=== PATIENT | male | born 1990 | race Caucasian/White ===

== ENCOUNTER 2019-07-01 12:26 | Emergency (ER) | payer SELFPAY ==
[2019-07-01 12:43] VITALS: BP 120/80; PULSE 86; TEMP 98; BMI 25.4
[2019-07-01] MEDS ORDERED: levETIRAcetam 500 MG/5 ML INJECTION VIAL IVPB ONE ×2 (12:53→13:12)
[2019-07-01] MEDS ORDERED: ONDANSETRON 4 MG/2 ML VIAL ONE (12:55)
[2019-07-01] MEDS ORDERED: SODIUM CHLORIDE 1,000 ML IV STA (12:57)
[2019-07-01] MEDS ORDERED: ONDANSETRON 4 MG/2 ML VIAL IVPUSH ONE ×2 (12:57→13:01)
--- NOTE | 2019-07-01 13:03 | PDOC ---
History of Present Illness - General Chief Complaint: Seizure Stated Complaint: Seizure Time Seen by Provider: 07/01/19 12:34 - History of Present Illness Initial Comments: David Glynn is a 28 yo male with reported PMH of TBI and craniotomy in 2012, on Keppra for 500 mg BID until 2 years ago, last seizure 3 years ago, pres enting today with witnessed generalized tonic clonic seizure. Per girlfriend, he was shaking his arms and legs with his eyes closed for several minutes, though this was not timed. No urinary incontinence or tongue lacerations. EMS called and by the time they arrived the seizures had stopped. Pt has mild post ictal state per EMS, but is alert and oriented x3. Denies headache/neck pain. Denies chest pain/shortness of breath. Pt began vomiting for 1st time in the ED. Denies abdominal pain. Denies weakness. Denies recent illness/fever/chills. He smokes marijuana regularly (last time was yesterday night). Reports moderate ETOH use. Denies other drug use. Neuro: in [place], has not followed in a while Past History - Past Medical History Allergies/Adverse Reactions: Allergies Allergy/AdvReac Type Severity Reaction Status Date / Time No Known Allergies Allergy Verified 07/01/19 12:43 Home Medications: Ambulatory Orders levETIRAcetam [Keppra -] 500 mg PO BID 01/25/13 levETIRAcetam [Keppra] 500 mg PO BID #30 tablet 01/25/13 levETIRAcetam [Keppra -] 500 mg PO BID #14 tablet 07/01/19 Seizures: Yes (TBI) - Psycho Social/Smoking Cessation Hx Smoking Status: Yes Smoking History: Never smoked Have you smoked in the past 12 months: No Number of Cigarettes Smoked Daily: 10 Information on smoking cessation initiated: No Hx Alcohol Use: No Drug/Substance Use Hx: No Review of Systems - Review of Systems Comments:: GENERAL/CONSTITUTIONAL: No fever or chills. No weakness._ HEAD, EYES, EARS, NOSE AND THROAT: No change in vision. No change in hearing. No sore throat._ CARDIOVASCULAR: No chest pain or shortness of breath_ RESPIRATORY: Denies cough, hemoptysis_ GASTROINTESTINAL: Reports nausea and vomiting. No diarrhea or constipation._ GENITOURINARY: No dysuria, frequency, or change in urination._ MUSCULOSKELETAL: No joint or muscle swelling or pain. No neck or back pain._ SKIN: No rash_ NEUROLOGIC: No headache, vertigo, or change in strength/sensation. Reports seizure activity. ENDOCRINE: No increased thirst. No abnormal weight change_ HEMATOLOGIC/LYMPHATIC: No anemia, easy bleeding, or history of blood clots._ ALLERGIC/IMMUNOLOGIC: No hives or skin allergy._ *Physical Exam - Vital Signs Last Vital Signs Temp Pulse Resp BP Pulse Ox 98 F 86 18 120/80 100 07/01/19 12:37 07/01/19 12:37 07/01/19 12:37 07/01/19 12:37 07/01/19 12:37 - Physical Exam GENERAL: Awake, alert, and oriented to person/place/time, in no acute distress_ HEAD: No signs of trauma, normocephalic, atraumatic _ EYES: PERRLA, EOMI, sclera anicteric, conjunctiva clear_ ENT: Hearing grossly normal, nares patent, oropharynx clear without exudates. No uvular deviation. Moist mucosa_ NECK: Normal ROM, supple, no lymphadenopathy, JVD, or masses_ LUNGS: No distress, speaks in full sentences, clear to auscultation bilaterally _ HEART: Regular rate and rhythm, normal S1 and S2, no murmurs appreciated, peripheral pulses normal and equal bilaterally._ ABDOMEN: Soft, nontender, normoactive bowel sounds. No guarding, no rebound. No masses_ EXTREMITIES: Normal inspection, Normal range of motion, no edema. No clubbing or cyanosis_ NEUROLOGICAL: CN II-XII tested and intact. Sensation intact to sharp/dull differentiation in all extremities. Motor: Normal tone and bulk. No abnormal movements appreciated. No pronator drift. Strength tested and 5/5 in bilateral wrist flexion/extension, elbow flexi on/extension, shoulder abduction, straight leg raise, knee flexion/extension, ankle dorsiflexion/plantarflexion. Patient ambulates with a steady gait. Coordination: Finger to nose and heel to méndez testing intact bilaterally. SKIN: Warm, Dry, normal turgor, no rashes or lesions noted_ ED Treatment Course - LABORATORY CBC & Chemistry Diagram: 07/01/19 12:00 07/01/19 12:00 - RADIOLOGY Radiology Studies Ordered: Category Date Time Status HEAD CT WITHOUT CONTRAST [CT] Stat CT Scan 07/01/19 12:48 Ordered Medical Decision Making - Medical Decision Making 07/01/19 13:09 28M hx of TBI, craniotomy, previously on keppra 500 mg BID (stopped two years ago), last known seizure 3 years ago, presenting with generalized tonic clonic seizure. Vomiting at bedside on arrival to the ER. -cbc, cmp -ct head -fingerstick glucose -keppra, zofran 07/01/19 14:21 CT head shows no acute intra cranial pathology. Encephalomalacia in the left temporal lobe laterally at the site of surgery involving the perisylvian region. Labs reviewed. Laboratory Last Values WBC 14.7 K/mm3 (4.0-10.0) H 07/01/19 12:00 RBC 5.00 M/mm3 (4.00-5.60) 07/01/19 12:00 Hgb 16.1 GM/dL (11.7-16.9) 07/01/19 12:00 Hct 46.8 % (35.4-49) 07/01/19 12:00 MCV 93.6 fl (80-96) 07/01/19 12:00 MCH 32.1 pg (25.7-33.7) 07/01/19 12:00 MCHC 34.3 g/dl (32.0-35.9) 07/01/19 12:00 RDW 13.1 % (11.9-15.9) 07/01/19 12:00 Plt Count 238 K/MM3 (134-434) 07/01/19 12:00 MPV 8.4 fl (7.5-11.1) 07/01/19 12:00 Absolute Neuts (auto) 9.4 K/mm3 (1.5-8.0) H 07/01/19 12:00 Neutrophils % 64.0 % (42.8-82.8) 07/01/19 12:00 Lymphocytes % 24.4 % (8-40) D 07/01/19 12:00 Monocytes % 8.6 % (3.8-10.2) 07/01/19 12:00 Eosinophils % 2.6 % (0-4.5) D 07/01/19 12:00 Basophils % 0.4 % (0-2.0) 07/01/19 12:00 Nucleated RBC % 0 % (0-0) 07/01/19 12:00 Sodium 141 mmol/L (136-145) 07/01/19 12:00 Potassium 4.6 mmol/L (3.5-5.1) 07/01/19 12:00 Chloride 106 mmol/L (98-107) 07/01/19 12:00 Carbon Dioxide 26 mmol/L (21-32) 07/01/19 12:00 Anion Gap 9 MMOL/L (8-16) 07/01/19 12:00 BUN 19.1 mg/dL (7-18) H 07/01/19 12:00 Creatinine 1.0 mg/dL (0.55-1.3) 07/01/19 12:00 Est GFR (CKD-EPI)AfAm 119.86 07/01/19 12:00 Est GFR (CKD-EPI)NonAf 103.41 07/01/19 12:00 POC Glucometer 110 UNITS (80-120) 07/01/19 13:01 Random Glucose 107 mg/dL (74-106) H 07/01/19 12:00 Calcium 9.6 mg/dL (8.5-10.1) 07/01/19 12:00 Total Bilirubin 1.2 mg/dL (0.2-1) H 07/01/19 12:00 AST 30 U/L (15-37) 07/01/19 12:00 ALT 29 U/L (13-61) 07/01/19 12:00 Alkaline Phosphatase 79 U/L (45-117) 07/01/19 12:00 Total Protein 7.6 g/dl (6.4-8.2) 07/01/19 12:00 Albumin 4.5 g/dl (3.4-5.0) 07/01/19 12:00 07/01/19 14:[address] Campos. 07/01/19 14:57 2nd call placed to Dr. Campos. 07/01/19 15:[address] Campos's cell phone. 07/01/19 15:48 D/w Dr. Campos who will see the pt tomorrow at 1pm. Recommends that we re-start Keppra 500 mg BID. Plan to d/c home with neuro f/u. D/w the patient who verbalized understanding and agreement with plan. All questions answered. Return precautions ordered. D/w the patient driving restrictions. 07/01/19 17:18 UA reviewed. Urine Test Results Urine Color Yellow 07/01/19 15:38 Urine Appearance Clear 07/01/19 15:38 Urine pH 5.0 (5.0-8.0) 07/01/19 15:38 Ur Specific [place] 1.027 (1.010-1.035) 07/01/19 15:38 Urine Protein Negative (NEGATIVE) 07/01/19 15:38 Urine Glucose (UA) Negative (NEGATIVE) 07/01/19 15:38 Urine Ketones 3+ (NEGATIVE) H 07/01/19 15:38 Urine Blood Negative (NEGATIVE) 07/01/19 15:38 Urine Nitrite Negative (NEGATIVE) 07/01/19 15:38 Urine Bilirubin Negative (NEGATIVE) 07/01/19 15:38 Ur Leukocyte Esterase Negative (NEGATIVE) 07/01/19 15:38 Laboratory Last Values WBC 14.7 K/mm3 (4.0-10.0) H 07/01/19 12:00 RBC 5.00 M/mm3 (4.00-5.60) 07/01/19 12:00 Hgb 16.1 GM/dL (11.7-16.9) 07/01/19 12:00 Hct 46.8 % (35.4-49) 07/01/19 12:00 MCV 93.6 fl (80-96) 07/01/19 12:00 MCH 32.1 pg (25.7-33.7) 07/01/19 12:00 MCHC 34.3 g/dl (32.0-35.9) 07/01/19 12:00 RDW 13.1 % (11.9-15.9) 07/01/19 12:00 Plt Count 238 K/MM3 (134-434) 07/01/19 12:00 MPV 8.4 fl (7.5-11.1) 07/01/19 12:00 Absolute Neuts (auto) 9.4 K/mm3 (1.5-8.0) H 07/01/19 12:00 Neutrophils % 64.0 % (42.8-82.8) 07/01/19 12:00 Lymphocytes % 24.4 % (8-40) D 07/01/19 12:00 Monocytes % 8.6 % (3.8-10.2) 07/01/19 12:00 Eosinophils % 2.6 % (0-4.5) D 07/01/19 12:00 Basophils % 0.4 % (0-2.0) 07/01/19 12:00 Nucleated RBC % 0 % (0-0) 07/01/19 12:00 Sodium 141 mmol/L (136-145) 07/01/19 12:00 Potassium 4.6 mmol/L (3.5-5.1) 07/01/19 12:00 Chloride 106 mmol/L (98-107) 07/01/19 12:00 Carbon Dioxide 26 mmol/L (21-32) 07/01/19 12:00 Anion Gap 9 MMOL/L (8-16) 07/01/19 12:00 BUN 19.1 mg/dL (7-18) H 07/01/19 12:00 Creatinine 1.0 mg/dL (0.55-1.3) 07/01/19 12:00 Est GFR (CKD-EPI)AfAm 119.86 07/01/19 12:00 Est GFR (CKD-EPI)NonAf 103.41 07/01/19 12:00 POC Glucometer 110 UNITS (80-120) 07/01/19 13:01 Random Glucose 107 mg/dL (74-106) H 07/01/19 12:00 Calcium 9.6 mg/dL (8.5-10.1) 07/01/19 12:00 Total Bilirubin 1.2 mg/dL (0.2-1) H 07/01/19 12:00 AST 30 U/L (15-37) 07/01/19 12:00 ALT 29 U/L (13-61) 07/01/19 12:00 Alkaline Phosphatase 79 U/L (45-117) 07/01/19 12:00 Total Protein 7.6 g/dl (6.4-8.2) 07/01/19 12:00 Albumin 4.5 g/dl (3.4-5.0) 07/01/19 12:00 Urine Color Yellow 07/01/19 15:38 Urine Appearance Clear 07/01/19 15:38 Urine pH 5.0 (5.0-8.0) 07/01/19 15:38 Ur Specific [place] 1.027 (1.010-1.035) 07/01/19 15:38 Urine Protein Negative (NEGATIVE) 07/01/19 15:38 Urine Glucose (UA) Negative (NEGATIVE) 07/01/19 15:38 Urine Ketones 3+ (NEGATIVE) H 07/01/19 15:38 Urine Blood Negative (NEGATIVE) 07/01/19 15:38 Urine Nitrite Negative (NEGATIVE) 07/01/19 15:38 Urine Bilirubin Negative (NEGATIVE) 07/01/19 15:38 Urine Urobilinogen 1.0 mg/dL (0.2-1.0) 07/01/19 15:38 Ur Leukocyte Esterase Negative (NEGATIVE) 07/01/19 15:38 Opiates Screen Negative ng/ml (BGZFPL=400) 07/01/19 15:38 Methadone Screen Negative ng/ml (SUNOPW=179) 07/01/19 15:38 Barbiturate Screen Negative ng/ml (DGBGDW=737) 07/01/19 15:38 Phencyclidine Screen Negative ng/ml (CUTOFF=25) 07/01/19 15:38 Ur Amphetamines Screen Negative ng/ml (YFHQCS=652) 07/01/19 15:38 MDMA (Ecstasy) Screen Negative ng/ml (UVXNEG=152) 07/01/19 15:38 Benzodiazepines Screen Negative ng/ml (PPBIRU=207) 07/01/19 15:38 Cocaine Screen Negative ng/ml (IFUXNP=088) 07/01/19 15:38 U Marijuana (THC) Screen Positive ng/ml (CUTOFF=50) A* 07/01/19 15:38 Discharge - Discharge Information Problems reviewed: Yes Clinical Impression/Diagnosis: Seizure Condition: Good Disposition: HOME - Admission No - Additional Discharge Information Prescriptions: levETIRAcetam [Keppra -] 500 mg PO BID #14 tablet - Follow up/Referral Referrals: Idalia Campos MD [Staff Physician] - - Patient Discharge Instructions Patient Printed Discharge Instructions: DI for Seizure Disorder -- Adult Additional Instructions: You are not allowed to drive any vehicle until you are evaluated by a neurologist and for the next 6 months. Please follow up with a neurologist (referral provided here). Dr. Campos has an appointment in his office tomorrow at 1pm. Please restart your Keppra 500 mg twice per day. If you experience any new, worsening, or concerning symptoms, including severe headache, nausea, vomiting, or any other concerns, please return to the emergency department. - Post Discharge Activity Work/Back to School Note: Back to Work
[2019-07-01 13:24] LABS: BASO % 0.4 % (0-2.0); EOS % 2.6 % (0-4.5); HEMATOCRIT 46.8 % (35.4-49); HEMOGLOBIN 16.1 GM/dL (11.7-16.9); LYMPH % 24.4 % (8-40); MCH 32.1 pg (25.7-33.7); MCHC 34.3 g/dl (32.0-35.9); MEAN CELL VOLUME 93.6 fl (80-96); MEAN PLT VOLUME 8.4 fl (7.5-11.1); MONO % 8.6 % (3.8-10.2); PLATELET COUNT 238 K/MM3 (134-434); RDW 13.1 % (11.9-15.9); WHITE BLOOD COUNT 14.7 K/mm3 (4.0-10.0)
[2019-07-01 13:52] LABS: ALBUMIN 4.5 g/dl (3.4-5.0); BILIRUBIN,TOTAL 1.2 mg/dL (0.2-1); BLOOD UREA NITROGEN 19.1 mg/dL (7-18); CALCIUM 9.6 mg/dL (8.5-10.1); POTASSIUM 4.6 mmol/L (3.5-5.1); TOT PROT 7.6 g/dl (6.4-8.2)
--- NOTE | 2019-07-01 14:55 | PDOC ---
Documentation entered by Priyank Freitas SCRIBE, acting as scribe for Torin Atwood MD. Torin Atwood MD: This documentation has been prepared by the Zena rosado Nirvannie, SCRIBE, under my direction and personally reviewed by me in its entirety. I confirm that the documentation accurately reflects all work, treatment, procedures, and medical decision making performed by me. Attending Attestation - Resident Resident Name: TomasJoseph - ED Attending Attestation I have performed the following: I have examined & evaluated the patient, The case was reviewed & discussed with the resident, I agree w/resident's findings & plan, Exceptions are as noted - HPI HPI: 07/01/19 14:06 CC: Convulsions The patient is a 28 year old male, with a significant past medical history of TBI (s/p craniotomy 13) and seizure disorder (off of Keppra 500 BID x2 years, last seizure 3 years ago), who presents to the emergency department s/p witnessed body convulsions. As per girlfriend at bedside, his arms and legs were both shaking and his eyes were closed for an unknown period of time (minutes). Girlfriend denies any urinary or bowel incontinence. While in the ED, the patient had one episode of emesis. Patient has not followed up with neurology in >1 year. Allergies: NKDA Social History: Daily marijuana smoking (last usage yesterday night). Moderate EtOH. Neurologist: Irma - Physicial Exam PE: 07/01/19 14:59 Vitals: Triage Vital signs reviewed General Appearance: No acute distress, well nourished well developed, Head: Atraumatic, Eyes: Pupils equal reactive round, extraocular movement intact Neck: Supple; no Nucal rigidity Chest Wall: Nontender Cardiac: Regular rate and rhythym, no murmurs, no rubs, no gallops, Lungs: Clear to auscultation bilateral, good air movement bilaterally, Abdomen: Soft, non distended, normal bowel sounds, non tender to palpation Extremities: Full range of motion to all extremities, no cyanosis, clubbing, or edema Skin: Warm and dry, no rashes or lesions, no rash, no petechiae Neuro: AOX3; cranial Nerves 2-12 grossly intact, strength intact to all extremities, sensation intact to all extremities, gait normal Psych: Normal mood, normal affect - Medical Decision Making 07/01/19 14:08 28 year old male, with a significant past medical history of TBI (s/p craniotomy 13) and seizure disorder (off of Keppra 500 BID x2 years, last seizure 3 years ago), who presents to the emergency department s/p witnessed body convulsions. Plan is: BGM Drug screen UA/UC Head CT Keppra Zofran Fluids 07/01/19 14:59 Previous seizure history last seizure 3 years ago has been off meds for 3 years presents with breakthrough seizure generalized tonic-clonic few minutes Now back to baseline mental status CAT scan within normal limits labs within normal limits patient restarted on Keppra patient will follow-up with neurology family endorses that they will assure patient follows up Patient instructed not to drive until cleared by neurology Findings, the need for follow-up and strict return instructions discussed with patient.
[2019-07-01 16:30] LABS: URINE APPEARANCE CLEAR; URINE BILIRUBIN NEGATIVE (NEGATIVE); URINE COLOR YELLOW; URINE GLUCOSE (UA) NEGATIVE (NEGATIVE); URINE KETONE 3+ (NEGATIVE); URINE LEUK ESTERASE NEGATIVE (NEGATIVE); URINE NITRITE NEGATIVE (NEGATIVE); URINE PROTEIN NEGATIVE (NEGATIVE)
[2019-07-01 16:39] LABS: COCAINE, UR NEGATIVE ng/ml (CUTOFF=300); METHADONE, UR NEGATIVE ng/ml (CUTOFF=300); OPIATES, URI NEGATIVE ng/ml (CUTOFF=300); PHENCYCLIDINE,URINE NEGATIVE ng/ml (CUTOFF=25); URINE AMPHETAMINES NEGATIVE ng/ml (CUTOFF=500); URINE BARBITURATES NEGATIVE ng/ml (CUTOFF=200); URINE BENZODIAZEPINES NEGATIVE ng/ml (CUTOFF=200)
== END 2019-07-01 16:12 | disposition home or self-care (01) ==
LOC: JER 12:26
PROC: 3E033GC Introduction of Other Therapeutic Substance into Peripheral Vein, Percutaneous Approach (ICD-10-PCS; principal; 2019-07-01)
DX: R56.9 Unspecified convulsions (principal)
CPT/HCPCS: 36415; 70450-TC; 80053; 80307; 81003; 82962; 85025; 87086; 99285-25; J7030